=== PATIENT | male | born 1960 | race Caucasian/White ===

== ENCOUNTER 2017-08-04 09:15 | Outpatient (CLI) | payer BC ==
[~2017-08-04] VITALS: Ht 172.7 cm; Wt 74.8 kg
[2017-08-04] MEDS ORDERED: DICL75TA2 PO (09:36)
== END 2017-08-04 09:37 ==
LOC: PREOP 09:15
PROVIDERS: ATTEND Internal Medicine
DX: Z01.818 Encounter for other preprocedural examination (principal); Z12.11 Encounter for screening for malignant neoplasm of colon

== ENCOUNTER 2017-08-08 09:10 | Day surgery (SDC) | payer BC ==
--- NOTE | 2017-07-31 06:08 | HISTORY AND PHYSICAL ---
DATE OF SERVICE: HISTORY OF PRESENT ILLNESS: The patient is a 57-year-old white male referred by Dr. Allen Muñoz, [place], [place] for his first screening colonoscopy. His works at [employer] and is responsible for him being here. He is very leery about the procedure. He is deemed to be of average risk as he is not aware of any family history for colon cancer or colon polyps. He denies any problems with weight change, bowel habit change, bright red blood per rectum or melena. He denies any problems with heartburn or dysphagia. PAST SURGICAL HISTORY: Significant for basal cell removal several years ago with no evidence for recurrence. He has had no other reported surgeries. PAST MEDICAL HISTORY: Noncontributory. He takes occasional Voltaren for muscle aches and pains and did have symptoms compatible with acute lumbago 2 or 3 days ago while he was lifting a 10-pound object overhead. There is no radiation of his pain and he denies any associated numbness, it limbers up a little bit with activity, but worse getting out of bed in the morning and when first getting up out of a chair. FAMILY HISTORY: His dad left apparently at a young age. He knows that he is around 78 and thinks that he is still living, but does not know anything about his health history or his side of the family. Mother is living, but in a care home at age of 78 secondary to Parkinson's disease. He is not aware of any malignancy that runs in the family. SOCIAL HISTORY: He has no past smoking history. He is employed, with no significant alcohol intake. PHYSICAL EXAMINATION: GENERAL: Reveals a pleasant white male, who appears to be in no acute distress. VITAL SIGNS: Weight is 174.4 pounds, blood pressure 140/88, heart rate 76 and regular. HEENT: Reveals a Mallampati 2 oropharyngeal configuration without evidence for erythema or exudate. NECK: Revealed no JVD, adenopathy or bruits. CHEST: Clear. CARDIOVASCULAR: Reveals a regular rate and rhythm without murmur, S3 or S4. ABDOMEN: Soft, supple without mass, organomegaly or tenderness. EXTREMITIES: Reveal no cyanosis, clubbing or edema. Rectal examination deferred at the time of colonoscopy, and I need to indicate that the patient was seen in my office on 07/24/2017. ASSESSMENT AND PLAN: The patient was set up for screening colonoscopy on 08/08/2017. Prep instructions with Suprep kit were given and questions were answered. I had a lengthy discussion about rationale for colonoscopy and why this was recommended. With his evaluation and discussion, 40 minutes [id number] care time spent by myself and another 15 minutes of staff time, setting of the procedure and going over prep instructions. I thank you for the referral of this pleasant gentleman. Sincerely, Job ID: [id number] DocumentID: [id number] Dictated Date: 07/25/2017 12:19:48 Knurling Machine Operator Date: 07/25/2017 13:23:03 Dictated By: RASHAWN TAMAYO MD
[~2017-08-08] VITALS: Ht 172.7 cm; Wt 74.8 kg
[~2017-08-08 09:10] MED LIST: DICL75TA2 PO
--- OUTSIDE RECORDS SUMMARY | 2017-08-08 09:14 | XMS REPORT ---
Author Author Allen Muñoz [facility] Address [address] [place], [place] [id number] Care Team Providers Care Woodyard Operator Name Role Phone Allen Muñoz PCP Unavailable Allen Muñoz PreferredProvider Unavailable Allergies and Adverse Reactions Name Reaction Notes NO KNOWN DRUG ALLERGIES Plan of Treatment Planned Activity Comments Planned Date Planned Time Plan/Goal Acute abdomen x-ray series 01/09/2017 12:00 AM Medications Active Name Start Date Estimated Completion Date SIG Comments Glucosamine 500 mg oral tablet take 1 tablet by oral route daily diclofenac sodium 75 mg oral tablet,delayed release (DR/EC) 04/25/2014 TAKE 1 TABLET (75 MG) BY ORAL ROUTE DAILY/PRN Sunscreen SPF 30 06/13/2014 apply q2h while outdoors, q1h if swimming or sweating Vaseline 06/13/2014 apply to areas frozen BID x 7-10 days diclofenac sodium 75 mg oral tablet,delayed release (DR/EC) 06/27/2014 TAKE 1 TABLET (75 MG) BY ORAL ROUTE DAILY/PRN diclofenac sodium 75 mg oral tablet,delayed release (DR/EC) 12/27/2014 TAKE 1 TABLET (75 MG) BY ORAL ROUTE DAILY/PRN ketoconazole 2 % topical shampoo 01/16/2016 apply shampoo by topical route twice weekly with at least 3 days between each shampooing Lidoderm 5 % topical adhesive patch,medicated 10/10/2016 02/07/2017 apply 2 patches by transdermal route once daily (May wear up to 12hours.) for 30 days Cialis 5 mg oral tablet 10/10/2016 02/07/2017 take 1 tablet (5 mg) by oral route once daily for 30 days Name Start Date Expiration Date SIG Comments Medrol (Emmanuel) 4 mg oral tablets,dose pack 03/15/2009 03/25/2009 take as directed for 5 days Adipex-P 37.5 mg oral tablet 03/15/2009 04/14/2009 take 1 tablet (37.5 mg/day) by oral route once daily before breakfast for 30 days meloxicam 15 mg oral tablet 03/25/2012 07/28/2012 take 1 tablet (15 mg) by oral route daily for 30 days Gralise 600 mg oral tablet extended release 24 hr 06/08/2012 08/07/2012 take1 3 tablet (600 mg) by oral route daily for 30 days amitriptyline 25 mg oral tablet 03/10/2013 10/06/2013 take 1 tablet (25 mg) by oral route once daily at bedtime for 30 days diclofenac sodium 75 mg oral tablet,delayed release (DR/EC) 03/10/20132013 take 1 tablet (75 mg) by oral route daily/PRN diclofenac sodium 75 mg oral tablet,delayed release (DR/EC) 12/20/20132013 TAKE 1 TABLET (75 MG) BY ORAL ROUTE DAILY/PRN Prilosec 20 mg oral capsule,delayed release(DR/EC) 07/27/2014 10/25/2014 take 1 capsule by oral route daily for 30 days gabapentin 300 mg oral capsule 08/24/2014 12/22/2014 take 1 capsule (300 mg) by oral route 3 times per day for 30 days phentermine 37.5 mg oral tablet 08/24/2014 09/23/2014 take 1 tablet by oral route daily for 30 days Levaquin 500 mg oral tablet 01/16/2016 01/23/2016 take 1 tablet (500 mg) by oral route once daily for 7 days prednisone 20 mg oral tablet 01/16/2016 01/23/2016 take 2 tablets (40 mg) by oral route once daily for 7 days Medrol (Emmanuel) 4 mg oral tablets,dose pack 12/27/2016 take as directed Discontinued Name Start Date Discontinued Date SIG Comments ketoconazole 2 % topical cream 05/12/2014 apply to the affected area(s) by topical route 2 times per day Axiron 30 mg/actuation (1.5 mL) transdermal solution in metered pump w/hung 05/12/2014 apply 1 pump (30 mg) by topical route once daily in the morning to 1 underarm only naproxen 250 mg oral tablet 03/25/2012 take 1 tablet (250 mg) by oral route 2 times per day with food MetroLotion 0.75 % topical lotion 05/12/2014 amitriptyline 25 mg oral tablet 05/09/2014 08/24/2014 take 1 tablet (25 mg) by oral route once daily at bedtime for 30 days Retin-A 0.025 % topical cream 06/13/2014 10/10/2016 apply to the affected area(s ) by topical route once daily at bedtime Elidel 1 % topical cream 06/13/2014 01/16/2016 apply a thin layer to the affected area(s) by topical route 2 times per day ; rub in gently and completely ketoconazole 2 % topical shampoo 09/26/2014 01/16/2016 use as directed daily Prilosec 20 mg oral capsule,delayed release(DR/EC) 01/24/2015 10/10/2016 TAKE 1 CAPSULE BY ORAL ROUTE DAILY FOR 30 DAYS diclofenac sodium 75 mg oral tablet,delayed release (DR/EC) 04/24/20152015 TAKE 1 TABLET (75 MG) BY ORAL ROUTE DAILY/PRN Problem List Description Status Onset Foot pain Active Joint Pain Active lumbar back pain Active Warts Active 05/02/2014 Seborrheic keratoses, inflamed Active 05/02/2014 Seborrheic keratoses Active 05/02/2014 Benign Neoplasm Of Skin Of Neck Active 06/13/2014 Solar lentigo Active 06/13/2014 Sebaceous hyperplasia Active 06/13/2014 Benign neoplasm of skin of back Active 06/13/2014 Benign neoplasm of skin of upper limb and shoulder Active 06/13/2014 Actinic keratoses Active 06/13/2014 Neurofibroma Active 06/13/2014 Neuropathy Active 08/25/2014 Chronic Pain in foot, Bilateral Active 08/25/2014 Vital Signs Date Time BP-Sys(mm[Hg] BP-Juhi(mm[Hg]) HR(bpm) RR(rpm) Temp WT HT HC BMI BSA BMI Percentile O2 Sat(%) 01/09/2017 1:50:00 PM 126 mmHg 78 mmHg 70 bpm 18 rpm 96.3 F 165.5 lbs 67 in 25.92 kg/m2 1.88 m2 100 % 10/10/2016 9:56:00 AM 130 mmHg 90 mmHg 72 bpm 16 rpm 97.1 F 165.5 lbs 67 in 25.9207 kg/m 1.8838 m 100 % 02/14/2016 10:24:00 AM 142 mmHg 94 mmHg 82 bpm 18 rpm 97.5 F 178 lbs 67 in 27.88 kg/m2 1.95 m2 98 % 01/16/2016 10:31:00 AM 132 mmHg 80 mmHg 90 bpm 18 rpm 97.3 F 171 lbs 67 in 26.7821 kg/m 1.9149 m 99 % 12/27/2014 9:06:00 AM 118 mmHg 66 mmHg 67 bpm 18 rpm 95.4 F 170 lbs 66 in 27.44 kg/m2 1.89 m2 09/26/2014 10:41:00 AM 120 mmHg 64 mmHg 66 bpm 18 rpm 98.2 F 170 lbs 67 in 26.6255 kg/m 1.9092 m 08/24/2014 4:12:00 PM 130 mmHg 80 mmHg 64 bpm 18 rpm 97.8 F 170 lbs 07/27/2014 10:10:00 AM 142 mmHg 84 mmHg 71 bpm 20 rpm 95.8 F 173 lbs 67 in 27.0954 kg/m 1.926 m 06/29/2014 9:25:00 AM 122 mmHg 70 mmHg 78 bpm 20 rpm 97.1 F 176 lbs 67 in 27.57 kg/m2 1.94 m2 05/12/2014 9:39:00 AM 114 mmHg 78 mmHg 82 bpm 18 rpm 97.7 F 180 lbs 67 in 28.1917 kg/m 1.9646 m 05/09/2014 1:03:00 PM 124 mmHg 82 mmHg 80 bpm 20 rpm 97.3 F 185 lbs 67 in 28.97 kg/m2 1.99 m2 05/02/2014 1:06:00 PM 175 lbs 67 in 27.4086 kg/m 1.9371 m 12/20/2013 1:05:00 PM 100 mmHg 80 mmHg 72 bpm 16 rpm 97.1 F 170.375 lbs 67 in 26.68 kg/m2 1.91 m2 03/10/2013 12:57:00 PM 110 mmHg 80 mmHg 82 bpm 16 rpm 97 F 171 lbs 67 in 26.7821 kg/m 1.9149 m 02/04/2013 1:09:00 PM 108 mmHg 80 mmHg 72 bpm 16 rpm 97.6 F 172 lbs 01/05/2013 1:08:00 PM 124 mmHg 80 mmHg 72 bpm 16 rpm 96.8 F 170 lbs 67 in 26.6255 kg/m 1.9092 m 06/08/2012 3:29:00 PM 132 mmHg 80 mmHg 72 bpm 16 rpm 97.8 F 170 lbs 67 in 26.63 kg/m2 1.91 m2 04/17/2012 8:14:00 AM 124 mmHg 82 mmHg 54 bpm 16 rpm 97.8 F 171 lbs 67 in 26.7821 kg/m 1.9149 m 03/25/2012 9:10:00 AM 118 mmHg 74 mmHg 66 bpm 16 rpm 97.6 F 167 lbs 03/15/2009 11:14:00 AM 110 mmHg 70 mmHg 82 bpm 20 rpm 98 F 172 lbs 67 in 26.9387 kg/m 1.9204 m Social History Name Description Comments Alcohol Use - Occasional Grown Children Lives with spouse in a house High school graduate technical school Denies illicit substance abuse Tobacco Former smoker Heating and air conditioning Did not serve in History of Procedures Date Ordered Description Order Status 03/25/2012 12:00 AM X-RAY EXAM THORAC SPINE 2VWS Reviewed 03/25/2012 12:00 AM MRI LUMBAR SPINE W/O DYE Reviewed 04/17/2012 12:00 AM X-RAY EXAM THORAC SPINE 2VWS Reviewed 04/17/2012 12:00 AM MRI LUMBAR SPINE W/O DYE Reviewed 07/08/2012 12:00 AM MUSC TST DONE W/NERV TST FUNEZ Reviewed 07/08/2012 12:00 AM NRV CNDJ TEST 7-8 STUDIES Reviewed 02/04/2013 12:00 AM Foot 3Views - MOB Reviewed 05/12/2014 12:00 AM COMPLETE CBC W/AUTO DIFF WBC Reviewed 05/12/2014 12:00 AM COMPREHEN METABOLIC PANEL Reviewed 05/12/2014 12:00 AM LIPID PANEL Reviewed 05/12/2014 12:00 AM ASSAY THYROID STIM HORMONE Reviewed 05/12/2014 12:00 AM VITAMIN B-12 Reviewed 05/12/2014 12:00 AM Prostate Cancer Screening Reviewed 05/12/2014 12:00 AM ASSAY OF TOTAL TESTOSTERONE Reviewed Results Summary Date and Description Results 05/12/2014 10:42 AM WBC 8.1 RBC 5.23 HGB 16.70 g/dLHCT 47.60 %MCV 91.0 fLMCH 31.90 pgMCHC 35.10 g/dLRDW SD 43 RDW CV 13.10 %MPV 11.90 fLPLT 182 NRBC# 0.00 NRBC% 0.0 %NEUT 51.70 %%LYMP 39.10 %%MONO 5.40 %%EOS 3.30 %%BASO 0.50 %#NEUT 4.19 #LYMP 3.17 #MONO 0.44 #EOS 0.27 #BASO 0.04 MANUAL DIFF NOT IND TSH 0.880 uIU/mLPSA TOTAL 2.440 ng/mLTESTOSTERONE 134.0 ng/dLVITAMIN B12 769.0 pg/ mLTRIGLYCERIDES 168.0 mg/dLCHOLESTEROL 181.0 mg/dLHDL 33.0 mg/dLTOT CHOL/HDL 5.5 LDL (CALC) 114.0 mg/dLGLUCOSE 87.0 mg/dLSODIUM 143.0 mmol/LPOTASSIUM 4.30 mmol/LCHLORIDE 105.0 mmol/LCO2 23.0 mmol/LBUN 15.0 mg/dLCREATININE 0.90 mg/ dLSGOT/AST 32.0 IU/LSGPT/ALT 51.0 IU/LALK PHOS 54.0 IU/LTOTAL PROTEIN 7.50 g/ dLALBUMIN 4.50 g/dLTOTAL BILI 0.60 mg/dLCALCIUM 9.60 mg/dLAGE 54 GFR NonAA 88 GFR AA 107 eGFR >60 mL/min/1.73 m2eGFR AA* >60 History Of Immunizations Not available. History of Past Illness Name Date of Onset Comments Trigger finger (acquired) Mar 15 2009 11:19AM Contact Dermatitis skin condition Hypogonadism Foot pain Joint Pain lumbar back pain Seborrheic dermatitis Atopic Dermatitis Rosacea Nummular eczema Sebaceous hyperplasia Neoplasm of unspecified nature Seborrheic keratoses Lentigines Melasma Dermatofibroma Scar Seborrheic keratoses, inflamed Blue nevus Warts 05/02/2014 Seborrheic keratoses, inflamed 05/02/2014 Seborrheic keratoses 05/02/2014 Benign Neoplasm Of Skin Of Neck 06/13/2014 Solar lentigo 06/13/2014 Sebaceous hyperplasia 06/13/2014 Benign neoplasm of skin of back 06/13/2014 Benign neoplasm of skin of upper limb and shoulder 06/13/2014 Actinic keratoses 06/13/2014 Neurofibroma 06/13/2014 Neuropathy 08/25/2014 Chronic Pain in foot, Bilateral 08/25/2014 Radiculopathy, lumbosacral Mar 25 2012 9:12AM Thoracic Spine Pain Mar 25 2012 9:12AM Neuralgia Mar 25 2012 9:12AM Radiculopathy, lumbosacral Apr 17 2012 8:16AM Thoracic Spine Pain Apr 17 2012 8:16AM Neuralgia Apr 17 2012 8:16AM Pain in limb Jul 08 2012 10:22AM Skin Sensation Disturbance Jul 08 2012 10:22AM Neuralgia Jul 08 2012 10:22AM Radiculopathy, lumbosacral Jun 08 2012 3:35PM Thoracic Spine Pain Jun 08 2012 3:35PM Neuralgia Jun 08 2012 3:35PM Neuralgia Jan 05 2013 1:08PM Pain in foot, Bilateral Jan 05 2013 1:08PM Neuralgia Feb 04 2013 1:13PM Pain in foot, Bilateral Feb 04 2013 1:13PM Neuralgia Mar 10 2013 1:02PM Chronic Pain in foot, Bilateral Mar 10 2013 1:02PM Neuralgia Dec 20 2013 1:11PM Chronic Pain in foot, Bilateral Dec 20 2013 1:11PM Seborrheic keratoses May 02 2014 1:08PM Seborrheic keratoses, inflamed May 02 2014 1:08PM Warts May 02 2014 1:08PM Neuralgia Fe 2015 1:05PM Chronic Pain in foot, Bilateral Feb 2014 1:05PM Overweight (BMI 25.0-29.9) May 09 2014 1:05PM Screening For Prostate Cancer May 12 2014 9:43AM Special screening for cardiovascular, respiratory, and genitourinary diseases; ischemic heart disease May 12 2014 9:43AM Fatigue May 12 2014 9:43AM Low testosterone May 12 2014 9:43AM Foot pain May 12 2014 9:43AM Inflamed seborrheic keratosis Jun 13 2014 10:33AM Seborrheic keratosis Jun 13 2014 10:33AM Benign neoplasm of skin of neck Jun 13 2014 10:33AM Solar lentigo Jun 13 2014 10:33AM Verrucae vulgaris Jun 13 2014 10:33AM Sebaceous hyperplasia Jun 13 2014 10:33AM Benign neoplasm of skin of back Jun 13 2014 10:33AM Benign neoplasm of skin of upper limb and shoulder Jun 13 2014 10:33AM Actinic keratoses Jun 13 2014 10:33AM Neurofibroma Jun 13 2014 10:33AM Neuralgia Jun 29 2014 9:29AM Chronic Pain in foot, Bilateral Jun 29 2014 9:29AM Overweight (BMI 25.0-29.9) Jun 29 2014 9:29AM Chronic Pain in foot, Bilateral Aug 24 2014 4:18PM Overweight (BMI 25.0-29.9) Aug 24 2014 4:18PM Neuropathy Aug 24 2014 4:18PM Chronic Pain in foot, Bilateral Sep 26 2014 10:42AM Overweight (BMI 25.0-29.9) Sep 26 2014 10:42AM Neuropathy Sep 26 2014 10:42AM Neuralgia Jul 27 2014 10:14AM Chronic Pain in foot, Bilateral Jul 27 2014 10:14AM Overweight (BMI 25.0-29.9) Jul 27 2014 10:14AM Chronic Pain in foot, Bilateral Dec 27 2014 9:08AM Overweight (BMI 25.0-29.9) Dec 27 2014 9:08AM Neuropathy Dec 27 2014 9:08AM Sinusitis Jan 16 2016 10:37AM Hypersomnia Feb 14 2016 10:28AM Pain in right foot Oct 10 2016 9:59AM Pain in left foot Oct 10 2016 9:59AM Erectile dysfunction Oct 10 2016 9:59AM Left lower quadrant pain Jan 09 2017 1:52PM Payers Insurance Name Company Name Plan Name Plan Number Policy Number Policy Group Number [id number] Thursday, 2008 History of Encounters Visit Date Visit Type Provider 01/09/2017 Office visit Allen Muñoz MD 10/10/2016 Office visit Allen Muñoz MD 02/14/2016 Office visit Allen Muñoz MD 01/16/2016 Office visit Allen Muñoz MD 12/27/2014 Office visit Perla CHAUDHRY 09/26/2014 Office visit Perla CHAUDHRY 08/24/2014 Office visit Perla CHAUDHRY 07/27/2014 Office visit Perla CHAUDHRY 06/29/2014 Office visit Perla CHAUDHRY 06/13/2014 Office visit Rachele Tanner MD 05/12/2014 Office visit 05/12/2014 Office visit Allen Muñoz MD 05/09/2014 Office visit Perla CHAUDHRY 05/02/2014 Office visit Rachele Tanner MD 12/20/2013 Office visit Perla CHAUDHRY 03/10/2013 Office visit Perla CHAUDHRY 02/04/2013 Office visit Perla CHAUDHRY 01/05/2013 Office visit Perla CHAUDHRY 07/08/2012 Procedures Moses Carias MD 06/08/2012 Office visit Moses Carias MD 04/17/2012 Office visit Moses Carias MD 03/25/2012 Office visit Moses Carias MD 03/15/2009 Office visit Allen Muñoz MD
--- OUTSIDE RECORDS SUMMARY | 2017-08-08 09:14 | XMS REPORT ---
Author Author Perla Goldman [facility] Address [address] [place], [place] [id number] Care Team Providers Care Platform Inspector Name Role Phone Perla Goldman PCP Allergies and Adverse Reactions Name Reaction Notes NO KNOWN DRUG ALLERGIES Plan of Treatment Not available. Medications Active Name Start Date Estimated Completion Date SIG Comments Glucosamine 500 mg oral tablet take 1 tablet by oral route daily diclofenac sodium 75 mg oral tablet,delayed release (DR/EC) 04/25/2014 TAKE 1 TABLET (75 MG) BY ORAL ROUTE DAILY/PRN Sunscreen SPF 30 06/13/2014 apply q2h while outdoors, q1h if swimming or sweating Vaseline 06/13/2014 apply to areas frozen BID x 7-10 days Retin-A 0.025 % topical cream 06/13/2014 apply to the affected area(s) by topical route once daily at bedtime Elidel 1 % topical cream 06/13/2014 apply a thin layer to the affected area( s) by topical route 2 times per day ; rub in gently and completely diclofenac sodium 75 mg oral tablet,delayed release (DR/EC) 06/27/2014 TAKE 1 TABLET (75 MG) BY ORAL ROUTE DAILY/PRN ketoconazole 2 % topical shampoo 09/26/2014 use as directed daily diclofenac sodium 75 mg oral tablet,delayed release (DR/EC) 12/27/2014 TAKE 1 TABLET (75 MG) BY ORAL ROUTE DAILY/PRN Name Start Date Expiration Date SIG Comments [...] by oral route daily for 30 days Discontinued Name Start Date Discontinued Date SIG [...] once daily at bedtime for 30 days Problem List Description Status Onset Foot pain Active Joint Pain Active lumbar back pain Active Warts Active 05/02/2014 Seborrheic keratoses, inflamed Active 05/02/2014 Seborrheic keratoses Active 05/02/2014 Benign neoplasm of skin of neck Active 06/13/2014 Solar lentigo Active 06/13/2014 Sebaceous [...] HC BMI BSA BMI Percentile O2 Sat(%) 12/27/2014 9:06:00 AM 118 mmHg 66 mmHg [...] 12:00 AM X-RAY EXAM THORAC SPINE 2VWS Returned 03/25/2012 12:00 AM MRI LUMBAR SPINE W/O DYE Returned 04/17/2012 12:00 AM X-RAY EXAM THORAC SPINE [...] ASSAY OF TOTAL TESTOSTERONE Reviewed Results Summary Data and Description Results 03/26/2012 5:50 PM SEDRATE 6.0 mm/hrGLUCOSE 90.0 mg/dLSODIUM 140.0 mmol/ LPOTASSIUM 4.0 mmol/LCHLORIDE 106.0 mmol/LCO2 25.0 mmol/LBUN 15.0 mg/ dLCREATININE 1.0 mg/dLSGOT/AST 14.0 IU/LSGPT/ALT 23.0 IU/LALK PHOS 44.0 IU/ LTOTAL PROTEIN 7.30 g/dLALBUMIN 4.40 g/dLTOTAL BILI 0.40 mg/dLCALCIUM 10.10 mg/ dLeGFR 60 URIC ACID 6.2 mg/dLVITAMIN B12 864.0 pg/mL 05/12/2014 10:42 AM WBC 8.1 RBC 5.23 HGB 16.70 g/dLHCT 47.60 %MCV 91.0 fLMCH 31.90 pgMCHC 35.10 g/dLRDW CV 13.10 %MPV 11.90 fLPLT 182 %NEUT 51.70 %%LYMP 39.10 %%MONO 5.40 %%EOS 3.30 %%BASO 0.50 %#NEUT 4.19 #LYMP 3.17 #MONO 0.44 #EOS 0.27 #BASO 0.04 TSH 0.880 uIU/mLPSA TOTAL 2.440 ng/mLTESTOSTERONE 134.0 ng/ dLVITAMIN B12 769.0 pg/mLTRIGLYCERIDES 168.0 mg/dLCHOLESTEROL 181.0 mg/dLHDL 33.0 mg/dLLDL (CALC) 114.0 mg/dLGLUCOSE 87.0 mg/dLSODIUM 143.0 mmol/LPOTASSIUM 4.30 mmol/LCHLORIDE 105.0 mmol/LCO2 23.0 mmol/LBUN 15.0 mg/dLCREATININE 0.90 mg/ dLSGOT/AST 32.0 IU/LSGPT/ALT 51.0 IU/LALK PHOS 54.0 IU/LTOTAL PROTEIN 7.50 g/ dLALBUMIN 4.50 g/dLTOTAL BILI 0.60 mg/dLCALCIUM 9.60 mg/dLeGFR >60 mL/min/1.73 m2 History Of Immunizations Not available. History of [...] keratoses, inflamed 05/02/2014 Seborrheic keratoses 05/02/2014 Benign neoplasm of skin of neck 06/13/2014 Solar lentigo 06/13/2014 Sebaceous hyperplasia 06/13/2014 [...] 1:08PM Warts May 02 2014 1:08PM Neuralgia May 09 2014 1:05PM Chronic Pain in foot, Bilateral May 09 2014 1:05PM Overweight (BMI 25.0-29.9) May 09 [...] 2014 9:08AM Neuropathy Dec 27 2014 9:08AM Payers Insurance Name Company Name Plan Name Plan Number Policy Number Policy Group Number Start Date [facility] [id number] Thursday, 2008 History of Encounters Visit Date Visit Type Provider 12/27/2014 Office visit Perla CHAUDHRY 09/26/2014 Office visit Perla CHAUDHRY 08/24/2014 Office visit Perla CHAUDHRY 07/27/2014 Office visit Perla CHAUDHRY 06/29/2014 Office visit Perla CHAUDHRY 06/13/2014 Office visit Rachele Tanner MD 05/12/2014 Office visit Allen Muñoz MD 05/09/2014 [...]
--- OUTSIDE RECORDS SUMMARY | 2017-08-08 09:15 | XMS REPORT ---
Author Author Allen Muñoz [facility] Address [address] [place], [place] [id number] Care Team Providers Care Importer Or Exporter Name Role Phone Allen Muñoz PCP Unavailable Allergies and Adverse Reactions Name Reaction [...] by topical route once daily at bedtime diclofenac sodium 75 mg oral tablet,delayed release (DR/EC) 06/27/2014 TAKE 1 TABLET (75 MG) BY ORAL ROUTE DAILY/PRN diclofenac sodium 75 mg oral tablet,delayed release (DR/EC) 12/27/2014 TAKE 1 TABLET (75 MG) BY ORAL ROUTE DAILY/PRN Prilosec 20 mg oral capsule,delayed release(DR/EC) 01/24/2015 TAKE 1 CAPSULE BY ORAL ROUTE DAILY FOR 30 DAYS Levaquin 500 mg oral tablet 01/16/2016 01/23/2016 take 1 tablet (500 mg) by oral route once daily for 7 days prednisone 20 mg oral tablet 01/16/2016 01/23/2016 take 2 tablets (40 mg) by oral route once daily for 7 days ketoconazole 2 % topical shampoo 01/16/2016 apply shampoo by topical route twice weekly with at least 3 days between each shampooing Name Start Date Expiration Date SIG Comments [...] once daily at bedtime for 30 days Elidel 1 % topical cream 06/13/2014 01/16/2016 apply a thin layer to the affected area(s) by topical route 2 times per day ; rub in gently and completely ketoconazole 2 % topical shampoo 09/26/2014 01/16/2016 use as directed daily diclofenac sodium 75 [...] HC BMI BSA BMI Percentile O2 Sat(%) 01/16/2016 10:31:00 AM 132 mmHg 80 mmHg 90 bpm 18 rpm 97.3 F 171 lbs 67 in 26.78 kg/m2 1.91 m2 99 % 12/27/2014 9:06:00 AM 118 mmHg 66 mmHg 67 bpm 18 rpm 95.4 F 170 lbs 66 in 27.4384 kg/m 1.8949 m 09/26/2014 10:41:00 AM 120 mmHg 64 mmHg 66 bpm 18 rpm 98.2 F 170 lbs 67 in 26.63 kg/m2 1.91 m2 08/24/2014 4:12:00 PM 130 mmHg 80 mmHg 64 bpm 18 rpm 97.8 F 170 lbs 07/27/2014 10:10:00 AM 142 mmHg 84 mmHg 71 bpm 20 rpm 95.8 F 173 lbs 67 in 27.10 kg/m2 1.93 m2 06/29/2014 9:25:00 AM 122 mmHg 70 mmHg 78 bpm 20 rpm 97.1 F 176 lbs 67 in 27.5652 kg/m 1.9426 m 05/12/2014 9:39:00 AM 114 mmHg 78 mmHg 82 bpm 18 rpm 97.7 F 180 lbs 67 in 28.19 kg/m2 1.96 m2 05/09/2014 1:03:00 PM 124 mmHg 82 mmHg 80 bpm 20 rpm 97.3 F 185 lbs 67 in 28.9748 kg/m 1.9917 m 05/02/2014 1:06:00 PM 175 lbs 67 in 27.41 kg/m2 1.94 m2 12/20/2013 1:05:00 PM 100 mmHg 80 mmHg 72 bpm 16 rpm 97.1 F 170.375 lbs 67 in 26.6842 kg/m 1.9113 m 03/10/2013 12:57:00 PM 110 mmHg 80 mmHg 82 bpm 16 rpm 97 F 171 lbs 67 in 26.7821 kg/m 1.91 m2 02/04/2013 1:09:00 PM 108 mmHg 80 mmHg 72 bpm 16 rpm 97.6 F 172 lbs 01/05/2013 1:08:00 PM 124 mmHg 80 mmHg 72 bpm 16 rpm 96.8 F 170 lbs 67 in 26.6255 kg/m 1.91 m2 06/08/2012 3:29:00 PM 132 mmHg 80 mmHg 72 bpm 16 rpm 97.8 F 170 lbs 67 in 26.63 kg/m2 1.9092 m 04/17/2012 8:14:00 AM 124 mmHg 82 mmHg 54 bpm 16 rpm 97.8 F 171 lbs 67 in 26.7821 kg/m 1.91 m2 03/25/2012 9:10:00 AM 118 mmHg 74 mmHg 66 bpm 16 rpm 97.6 F 167 lbs 03/15/2009 11:14:00 AM 110 mmHg 70 mmHg 82 bpm 20 rpm 98 F 172 lbs 67 in 26.9387 kg/m 1.92 m2 Social History Name Description Comments Alcohol Use [...] 2014 9:08AM Sinusitis Jan 16 2016 10:37AM Payers Insurance Name Company Name Plan Name Plan Number Policy Number Policy Group Number [id number] Thursday, 2008 History of Encounters Visit Date Visit Type Provider 01/16/2016 Office visit Allen Muñoz MD 12/27/2014 [...]
--- OUTSIDE RECORDS SUMMARY | 2017-08-08 09:16 | XMS REPORT ---
Author Author Allen Muñoz [facility] Address [address] [place], [place] [id number] Care Team Providers Care Electronic Tech Name Role Phone Allen Muñoz PCP Unavailable [...] BY ORAL ROUTE DAILY FOR 30 DAYS ketoconazole 2 % topical shampoo 01/16/2016 apply [...] oral route once daily for 7 days Discontinued Name Start Date Discontinued Date [...] HC BMI BSA BMI Percentile O2 Sat(%) 02/14/2016 10:24:00 AM 142 mmHg 94 mmHg [...] 4.40 g/dLTOTAL BILI 0.40 mg/dLCALCIUM 10.10 mg/ dLAGE 52 GFR NonAA 78 GFR AA 95 eGFR 60 eGFR AA* 60 URIC ACID 6.2 mg/dLVITAMIN B12 864.0 [...] 1:08PM Warts May 02 2014 1:08PM Neuralgia Feb 2014 1:05PM Chronic Pain in foot, Bilateral [...] 2016 10:37AM Hypersomnia Feb 14 2016 10:28AM Payers Insurance Name Company Name Plan Name Plan Number Policy Number Policy Group Number [facility] Date [id number] Thursday, 2008 History of Encounters Visit Date Visit Type Provider 02/14/2016 Office visit Allen Muñoz MD 01/16/2016 [...]
--- OUTSIDE RECORDS SUMMARY | 2017-08-08 09:17 | XMS REPORT ---
Author Author Allen Muñoz [facility] Address [address] [place], [place] [id number] Care Team Providers Care Coin Machine Service Repairer Name Role Phone Allen Muñoz PCP Unavailable [...] oral route once daily for 30 days Medrol (Emmanuel) 4 mg oral tablets,dose pack 12/27/2016 take as directed Name Start Date Expiration Date SIG Comments [...] HC BMI BSA BMI Percentile O2 Sat(%) 10/10/2016 9:56:00 AM 130 mmHg 90 mmHg 72 bpm 16 rpm 97.1 F 165.5 lbs 67 in 25.92 kg/m2 1.88 m2 100 % 02/14/2016 10:24:00 AM 142 mmHg 94 mmHg 82 bpm 18 rpm 97.5 F 178 lbs 67 in 27.8785 kg/m 1.9537 m 98 % 01/16/2016 10:31:00 AM 132 mmHg [...] rpm 97 F 171 lbs 67 in 26.78 kg/m2 1.91 m2 02/04/2013 1:09:00 PM 108 mmHg 80 mmHg 72 bpm 16 rpm 97.6 F 172 lbs 01/05/2013 1:08:00 PM 124 mmHg 80 mmHg 72 bpm 16 rpm 96.8 F 170 lbs 67 in 26.63 kg/m2 1.91 m2 06/08/2012 3:29:00 PM 132 mmHg 80 mmHg 72 bpm 16 rpm 97.8 F 170 lbs 67 in 26.6255 kg/m 1.9092 m 04/17/2012 8:14:00 AM 124 mmHg 82 mmHg 54 bpm 16 rpm 97.8 F 171 lbs 67 in 26.78 kg/m2 1.91 m2 03/25/2012 9:10:00 AM 118 mmHg 74 mmHg 66 bpm 16 rpm 97.6 F 167 lbs 03/15/2009 11:14:00 AM 110 mmHg 70 mmHg 82 bpm 20 rpm 98 F 172 lbs 67 in 26.94 kg/m2 1.92 m2 Social History Name Description Comments [...] 1:08PM Warts May 02 2014 1:08PM Neuralgia Fe2014 1:05PM Chronic Pain in foot, Bilateral May [...] 9:59AM Erectile dysfunction Oct 10 2016 9:59AM Payers Insurance Name Company Name Plan Name Plan Number Policy Number Policy Group Number [id number] Thursday, 2008 History of Encounters Visit Date Visit Type Provider 10/10/2016 Office visit Allen Muñoz MD 02/14/2016 [...]
--- OUTSIDE RECORDS SUMMARY | 2017-08-08 09:17 | XMS REPORT ---
Author Author Allen Muñoz [facility] Address [address] [place], [place] [id number] Care Team Providers Care Network Systems Administrator Name Role Phone Allen Muñoz PCP Unavailable [...] Reviewed Results Summary Date and Description Results 03/26/2012 5:50 PM SEDRATE [...] Policy Number Policy Group Number Start Date [facility] [id number] Thursday, 2008 History of Encounters Visit Date [...]
--- OUTSIDE RECORDS SUMMARY | 2017-08-08 09:18 | XMS REPORT ---
Author Author [facility] Organization [facility] Address [address] [place], [place] [id number] Care Team Providers Care Plant Attendant Or Assistant Operator Name Role Phone PCP Unavailable Allergies and Adverse Reactions Name Reaction Notes NO KNOWN DRUG ALLERGIES Plan of Treatment Not available. Medications Active Name Start Date Estimated Completion Date SIG Comments Glucosamine Oral tablet 500 mg take 1 tablet by oral route daily diclofenac sodium oral tablet,delayed release (DR/EC) 75 mg 04/25/2014 TAKE 1 TABLET (75 MG) BY ORAL ROUTE DAILY/PRN Sunscreen SPF 30 06/13/2014 apply q2h while outdoors, q1h if swimming or sweating Vaseline 06/13/2014 apply to areas frozen BID x 7-10 days Retin-A topical cream 0.025 % 06/13/2014 apply to the affected area(s) by topical route once daily at bedtime Elidel topical cream 1 % 06/13/2014 apply a thin layer to the affected area( s) by topical route 2 times per day ; rub in gently and completely diclofenac sodium oral tablet,delayed release (DR/EC) 75 mg 06/27/2014 TAKE 1 TABLET (75 MG) BY ORAL ROUTE DAILY/PRN Prilosec oral capsule,delayed release(DR/EC) 20 mg 07/27/2014 10/25/2014 take 1 capsule by oral route daily for 30 days gabapentin oral capsule 300 mg 08/24/2014 12/22/2014 take 1 capsule (300 mg) by oral route 3 times per day for 30 days phentermine oral tablet 37.5 mg 08/24/2014 09/23/2014 take 1 tablet by oral route daily for 30 days Name Start Date Expiration Date SIG Comments Medrol (Emmanuel) Oral Tablets, Dose Pack 4 mg 03/15/2009 03/25/2009 take as directed for 5 days Adipex-P Oral Tablet 37.5 mg 03/15/2009 04/14/2009 take 1 tablet (37.5 mg/day) by oral route once daily before breakfast for 30 days meloxicam Oral tablet 15 mg 03/25/2012 07/28/2012 take 1 tablet (15 mg) by oral route daily for 30 days Gralise Oral tablet extended release 24 hr 600 mg 06/08/2012 08/07/2012 take1 3 tablet (600 mg) by oral route daily for 30 days amitriptyline oral tablet 25 mg 03/10/2013 10/06/2013 take 1 tablet (25 mg) by oral route once daily at bedtime for 30 days diclofenac sodium oral tablet,delayed release (DR/EC) 75 mg 03/10/20132013 take 1 tablet (75 mg) by oral route daily/PRN diclofenac sodium oral tablet,delayed release (DR/EC) 75 mg 12/20/20132013 TAKE 1 TABLET (75 MG) BY ORAL ROUTE DAILY/PRN Discontinued Name Start Date Discontinued Date SIG Comments ketoconazole Topical Cream 2 % 05/12/2014 apply to the affected area(s) by topical route 2 times per day Axiron Transdermal Solution in Metered Pump w/April 30 mg/1.5 mL /actuation apply 1 pump (30 mg) by topical route once daily in the morning to 1 underarm only naproxen Oral tablet 250 mg 03/25/2012 take 1 tablet (250 mg) by oral route 2 times per day with food MetroLotion topical lotion 0.75 % 05/12/2014 amitriptyline oral tablet 25 mg 05/09/2014 08/24/2014 take 1 tablet (25 mg) [...] HC BMI BSA BMI Percentile O2 Sat(%) 08/24/2014 4:12:00 PM 130 mmHg 80 mmHg [...] AM NRV CNDJ TEST 7-8 STUDIES Reviewed 05/12/2014 12:00 AM COMPLETE CBC W/AUTO DIFF WBC Reviewed 05/12/2014 12:00 AM COMPREHEN METABOLIC PANEL Reviewed 05/12/2014 12:00 AM LIPID PANEL Reviewed 05/12/2014 12:00 AM ASSAY THYROID STIM HORMONE Reviewed 05/12/2014 12:00 AM VITAMIN B-12 Reviewed 05/12/2014 12:00 AM ASSAY OF TOTAL [...] #BASO 0.04 TSH 0.880 uIU/mLPSA TOTAL 2.440 ng/mLVITAMIN B12 769.0 pg/ mLTRIGLYCERIDES 168.0 mg/dLCHOLESTEROL 181.0 mg/dLHDL 33.0 mg/dLLDL (CALC) 114.0 mg/dLGLUCOSE 87.0 mg/dLSODIUM 143.0 mmol/LPOTASSIUM 4.30 mmol/LCHLORIDE 105.0 mmol/LCO2 23.0 mmol/LBUN 15.0 mg/dLCREATININE 0.90 mg/dLSGOT/AST 32.0 IU/ LSGPT/ALT 51.0 IU/LALK PHOS 54.0 IU/LTOTAL PROTEIN 7.50 g/dLALBUMIN 4.50 g/ dLTOTAL BILI 0.60 mg/dLCALCIUM 9.60 mg/dLeGFR >60 mL/min/1.73 [...] 2014 1:05PM Chronic Pain in foot, Bilateral Fe2014 1:05PM Overweight (BMI 25.0-29.9) Fe2014 1:05PM Screening For Prostate Cancer May 12 [...] 2014 4:18PM Neuropathy Aug 24 2014 4:18PM Payers Insurance Name Company Name Plan Name Plan Number Policy Number Policy Group Number Start Date [facility] [place] [id number] Thursday, 2008 History of Encounters Visit Date Visit Type Provider 08/24/2014 Office visit Perla CHAUDHRY 07/27/2014 Office [...]
--- OUTSIDE RECORDS SUMMARY | 2017-08-08 09:18 | XMS REPORT | Continuity of Care Document ---
Author Author [facility] Address Unknown Phone Unavailable Allergies Active Description Code Type Severity Reaction Onset Reported/Identified Relationship to Patient Clinical Status Yes No Known Drug Allergies [id number] Drug Allergy Unknown N/A 08/04/2017 Medications There is no data. Problems Date Dx Coded Attending Type Code Diagnosis Diagnosed By 08/01/2017 RASHAWN TAMAYO MD Ot Z01.818 ENCOUNTER FOR OTHER PREPROCEDURAL EXAMIN 08/01/2017 RASHAWN TAMAYO MD Ot Z12.11 ENCOUNTER FOR SCREENING FOR MALIGNANT NE 08/04/2017 RASHAWN TAMAYO MD Ot Z01.818 ENCOUNTER FOR OTHER PREPROCEDURAL EXAMIN 08/04/2017 RASHAWN TAMAYO MD Ot Z12.11 ENCOUNTER FOR SCREENING FOR MALIGNANT NE 08/04/2017 RASHAWN TAMAYO MD Ot Z01.818 ENCOUNTER FOR OTHER PREPROCEDURAL EXAMIN 08/04/2017 RASHAWN TAMAYO MD Ot Z12.11 ENCOUNTER FOR SCREENING FOR MALIGNANT NE 08/04/2017 RASHAWN TAMAYO MD Ot Z01.818 ENCOUNTER FOR OTHER PREPROCEDURAL EXAMIN 08/04/2017 RASHAWN TAMAYO MD Ot Z12.11 ENCOUNTER FOR SCREENING FOR MALIGNANT NE Procedures There is no data. Results There is no data. Encounters ACCT No. Visit Date/Time Discharge Status Pt. Type Provider Facility Loc./Unit Complaint [id number] 01/09/2017 14:29:25 01/09/2017 23:59:59 [facility] Outpatient Allen Muñoz [id number] 10/10/2016 10:35:18 10/10/2016 23:59:59 [facility] Outpatient Allen Muñoz [id number] 02/14/2016 11:09:59 02/14/2016 23:59:59 [facility] Outpatient Allen Muñoz [id number] 01/16/2016 11:30:14 01/16/2016 23:59:59 C[facility] Outpatient Allen Muñoz [id number] 12/27/2014 10:03:32 12/27/2014 23:59:59 C[facility] Outpatient Perla Goldman [id number] 11/14/2014 22:00:30 11/14/2014 23:59:59 CLS Outpatient Perla Goldman [id number] 11/14/2014 21:32:51 11/14/2014 23:59:59 CLS Outpatient Perla Goldman [id number] 07/27/2014 11:06:27 07/27/2014 23:59:59 CLS Outpatient Perla Goldman [id number] 06/29/2014 10:21:14 06/29/2014 23:59:59 CLS Outpatient Perla Goldman [id number] 05/12/2014 10:11:58 05/12/2014 23:59:59 CLS Outpatient Allen Muñoz [id number] 05/09/2014 13:58:25 05/09/2014 23:59:59 CLS Outpatient Perla Goldman [id number] 05/02/2014 14:06:54 05/02/2014 23:59:59 CLS Outpatient Rachele Tanner [id number] 12/20/2013 13:58:59 12/20/2013 23:59:59 CLS Outpatient Perla Goldman [id number] 08/04/2017 09:15:00 08/04/2017 09:37:00 DIS Outpatient RASHAWN TAMAYO MD [facility] PREOP COLONOSCOPY [id number] 08/08/2017 11:00:00 PEN Preadmit RASHAWN TAMAYO MD [facility] ENDO SCREENING
[2017-08-08] MEDS ORDERED: D5 LR IV SOLUTION 1,000 ML IV STA (09:34)
[2017-08-08 09:50] VITALS: BP 121/87
[2017-08-08] MEDS ORDERED: LIDOCAINE JELLY 2% (XYLOCAINE) 5 ML TUBE ONE (10:43)
[2017-08-08] MEDS ORDERED: fentaNYL INJECTION 100 MCG/2 ML AMP ONE ×2 (10:43→11:16)
[2017-08-08] MEDS ORDERED: MIDAZOLAM 2 MG/2 ML (VERSED) VIAL ONE ×3 (10:43)
[2017-08-08] MEDS: fentaNYL INJECTION 100 MCG/2 ML AMP IVP PRN ×3 (11:08→11:18)
[2017-08-08] MEDS: MIDAZOLAM 2 MG/2 ML (VERSED) VIAL IVP PRN ×2 (11:09→11:16)
--- NOTE | 2017-08-08 11:41 | Pre-Op Note & Conscious Sedat ---
Pre-Operative Progress Note H&P Reviewed The H&P was reviewed, patient examined and no changes noted. Date H&P Reviewed: August 08, 2017 Time H&P Reviewed: 10:50 Conscious Sedation Pre-Proced ASA Class: 1 Airway Mallampati Classification: (tlingit & haida appropriate class) I. II. III, IV Lungs Heart ASA score ASA 1: a normal healthy patient ASA 2: a patient with a mild systemic disease (mid diabetes, controlled hypertension, obesity ASA 3: a patient with a severe systemic disease that limits activity (angina , COPD, prior Myocardial infarction) ASA 4: a patient with an incapacitating disease that is a constant threat to life (CHF, renal failure) ASA 5: a moribund patient not expected to survive 24 hrs. (ruptured aneurysm) ASA 6: a declared brain patient whose organs are being harvested. For emergent operations, add the letter E after the classification Grade 2 Sedation Plan: Analgesia, Amnesia, Plan communicated to team members, Discussed options with patient/fam, Discussed risks with patient/fam Note The patient is an appropriate candidate to undergo the planned procedure, sedation, and anesthesia. The patient immediately re-assessed prior to indication. RASHAWN TAMAYO MD August 08, 2017 11:41
[2017-08-08 11:50] VITALS: BP 119/80
[2017-08-08 12:20] VITALS: BP 118/85
[2017-08-08 12:30] VITALS: BP 118/85
--- NOTE | 2017-08-08 19:13 | OPERATIVE REPORT ---
DATE OF SERVICE: COLONOSCOPY SUMMARY INDICATION FOR THE PROCEDURE: Screening colonoscopy referred by Dr. Allen Muñoz. The patient was placed in the left lateral decubitus position. Prior to undergoing colonoscopy, digital rectal evaluation was performed. Anal sphincter tone was normal and the perianal reflex was intact. The prostate was anodular, nontender, normal in size to digital inspection. No abnormalities to digital inspection of the anal canal or distal rectal vault. The colonoscope was then inserted into the rectum and under direct visualization advanced to the cecum. The cecum was identified by identification of the ileocecal valve and cecal strap. Photographic documentation was obtained. Careful inspection was made as colonoscope was withdrawn. The patient tolerated the procedure well. FINDINGS: There was no evidence for internal or external hemorrhoids. The rectum was unremarkable. Two adjacent diminutive 3 mm sessile polyps were noted in the proximal sigmoid colon. There were both biopsied and ablated with no subsequent blood loss. No evidence for diverticular disease appreciated. The descending colon, splenic flexure, transverse colon, hepatic flexure, ascending colon and cecum were normal. ASSESSMENT: Two diminutive sessile polyps were removed via hot forceps with ablation from the proximal sigmoid colon. This was an otherwise normal colonoscopy to the cecum with normal digital rectal examination. I thank you for the referral of this pleasant gentleman. As he reports no family history for colon cancer as long as there are no surprise on histopathology report would advocate consideration for repeat screening colonoscopy in 10 years. Job ID: [id number] DocumentID: [id number] Dictated Date: 08/08/2017 11:48:15 [place] Date: 08/08/2017 19:12:48 Dictated By: RASHAWN TAMAYO MD [facility]
== END 2017-08-08 12:30 | disposition home or self-care (01) ==
LOC: ENDO 09:10
PROVIDERS: ATTEND Internal Medicine
DX: Z12.11 Encounter for screening for malignant neoplasm of colon (principal); D12.5 Benign neoplasm of sigmoid colon; Z85.828 Personal history of other malignant neoplasm of skin
CPT/HCPCS: 88305